=== PATIENT | male | born 1995 | race Two or more races ===

== ENCOUNTER 2016-10-04 20:55 | Emergency (ER) | payer OTHER ==
[~2016-10-04] VITALS: Ht 175.3 cm; Wt 81.6 kg
[2016-10-04] VITALS (9 sets, daily range): BP systolic 141–189; BP diastolic 81–111
[2016-10-04] MEDS ORDERED: Ketamine 500mg Inj IV ONE (21:30)
--- NOTE | 2016-10-04 21:49 | Emergency Room Report ---
History of Present Illness General Chief Complaint: Pain Source: Patient Present Illness HPI 23 YOM walk-in patient woke up with painful left shoulder in [place] this morning. Not sure what happened. Denies known trauma, falls. Asked "medic" at airport in [place] who suspected dislocation. No previous dislocation. Patient flew back to [place] then came to ED. Denies other medical problems, trauma. Allergies: Coded Allergies: No Known Allergies (Unverified , 10/04/16) Patient History Past Medical History: none Past Surgical History: none Pertinent Family History: none Social History: Denies: alcohol use, drug use, smoking Immunizations: UTD Reviewed Nursing Documentation: PMH: Agreed, PSxH: Agreed Nursing Documentation-PMH Past Medical History: No History, Except For Review of Systems All Other Systems: negative except mentioned in HPI Physical Exam Vital Signs Date Time Temp Pulse Resp B/P Pulse Ox O2 Delivery O2 Flow Rate FiO2 10/04/16 21:05 98.4 56 14 161/81 100 Room Air Sp02 EP Interpretation: reviewed, normal General Appearance: normal inspection, well appearing, no apparent distress, alert, GCS 15, non-toxic Head: normocephalic, atraumatic Eyes: bilateral eye EOMI, bilateral eye PERRL ENT: normal ENT inspection, hearing grossly normal, normal voice Neck: normal inspection, full range of motion, supple, no bony tend Respiratory: normal inspection, lungs clear, normal breath sounds, no respiratory distress, no retraction, no wheezing Cardiovascular #1: regular rate, rhythm, no edema Gastrointestinal: normal inspection, normal bowel sounds, non tender, soft, no guarding, no hernia Genitourinary: no CVA tenderness Musculoskeletal: normal inspection, back normal, normal range of motion, Henrique' s Sign negative, other - Left shoulder: Loss of normal rounded contour. Patient unable to adduct left shoudler and touch right shoulder with left arm. Unable to raise left arm above horizon. Neurologic: normal inspection, alert, oriented x3, responsive, mechanical inspector III-XII nml as tested, motor strength/tone normal, speech normal Psychiatric: normal inspection, judgement/insight normal, mood/affect normal Skin: normal inspection, normal color, no rash Procedures Joint Reduction Joint Reduction : Consent: Verbal Joint Reduction Site: shoulder (L) Procedural Sedation: Yes Reduction Attempts: One Pre-Procedure NV Exam: Yes Post-Procedure NV Exam: Yes Post Joint Reduction Film: joint reduced Patient Tolerated: Well Complications: None Procedural Sedation Consent: Verbal Pre-Sedation Assessment: Eval. Immed. Prior to Sed, Pre-proc Edu. done, Plan for Sedation Discuss Airway Assessment (Malampati): I Heart: normal Lungs: normal Abdomen: normal Extremities: normal Procedures/Plans: Closed Reduction Plan for Moderate Sedation: Other - ketamine ASA Score: I Start Time: 22:30 End Time: 22:33 Communication: No Apparent Limitation Mental Status: Awake Respiration: Unlabored Skin Condition: WNL Nausea: NO Vomiting: NO Additional Comments: Time out done at 2228 I went over plans for procedural sedation and reduction of left shoulder dislocation with patient He consented to both and signed consent form; RN will place in chart Patient positioned upright, sitting RT present-patient attached to Cardiac, O2 monitor with NC 2L O2 in place Suction and BVM were placed nearby I pushed ketamine 2mg/kg in right antecubital fossa IV followed by saline bolus push I then proceeded to manipulate left shoulder using the Karla technique Bent left arm at the elbow, pressed it against the body, rotate outwards until resistance is felt. I lifted the externally rotated upper arm in the sagittal plane as far as possible forwards and finally turn inwards slowly There was an obvious improvement in the anatomical rounding of left shoulder with visible and audible pop Patient placed in sling Was observed until awake and oriented and DCed with roomate Medical Decision Making Diagnostic Impression: Primary Impression: Pain Additional Impression: Dislocation of left shoulder joint Qualified Codes: S43.005A - Unspecified dislocation of left shoulder joint, initial encounter ER Course 21 YO M with spontaneous left shoulder dislocation, now s/p reduction in ED using procedural sedation. See procedural sedation and procedure note Sling placed Patient's roomate states her parents are [employer] and will refer patient to orthopedist Advised to keep shoulder in sling until evaluated and cleared by Orthopedist DC home Other X-Ray Diagnostic Results Other X-Ray Diagnostic Results : X-Ray Ordered: Left shoulder EP Interpretation: Yes Findings: no fractures, no soft tissue swelling, other - Left anterior shoulder dislocation; no fracture Number of Views: 3 Other Impression Left shoulder 3 views ED review S/p reduction No fracture Previously seen dislocation is now reduced Last Vital Signs Date Time Temp Pulse Resp B/P Pulse Ox O2 Delivery O2 Flow Rate FiO2 10/04/16 21:13 98.4 80 14 161/81 100 Room Air Status: improved Disposition: HOME, SELF-CARE Condition: Serious Referrals: NOT CHOSEN IPA/,REFERRING (PCP) RENETTA JAUREGUI M.D. Oct 04, 2016 21:49
--- NOTE | 2016-10-05 10:05 | Diagnostic Imaging Report ---
Indication: Pain Findings: 3 views of the left shoulder were obtained. Alignment of the left shoulder is normal. No acute fracture is identified. Soft tissues are unremarkable. Impression: Negative left shoulder examination
--- NOTE | 2016-10-05 10:06 | Diagnostic Imaging Report ---
Indication: Pain Findings: 3 views of the left shoulder were obtained. Anterior dislocation of the glenohumeral joint noted. No fracture seen. Impression: Anterior dislocation
== END 2016-10-04 23:30 | disposition home or self-care (01) ==
LOC: EMR 21:30
DX: S43.015A Anterior dislocation of left humerus, initial encounter (principal); X58.XXXA Exposure to other specified factors, initial encounter; Y92.89 Other specified places as the place of occurrence of the external cause
CPT/HCPCS: 96360